=== PATIENT | female | born 1985 | race Caucasian/White ===

== ENCOUNTER 2017-02-28 16:31 | Emergency (ER) | payer MEDICARE ==
[~2017-02-28 16:31] MED LIST: BENTYL 20MG TAB20 MG PO; HYDROCHLOROTH12.5 M1 PO; LEVOTHYROXINE50 MCG PO; LISINOPRIL10 MG PO; METFORMIN HCL500 MG PO; OMEPRAZOLE20 MG PO; PHENERGAN 25 MG25 M1 PO; ZOCOR20 MG PO; ZYRTEC10 MG PO
[2017-02-28 17:21] LABS: HEMOGLOBIN 14.9 gm/dl (12.3-15.3); RED BLOOD COUNT 5.03 M/UL (4.00-5.10); WHITE BLOOD COUNT 14.1 K/UL (4.5-11.0)
[2017-02-28 17:38] LABS: BUN/CREATININE RATIO 14 (0-10)
== END 2017-03-01 01:17 | disposition home or self-care (01) ==
LOC: ER1 16:31
PROVIDERS: Family Medicine
DX: N83.201 Unspecified ovarian cyst, right side (principal); K57.90 Diverticulosis of intestine, part unspecified, without perforation or abscess without bleeding; E11.9 Type 2 diabetes mellitus without complications; I10 Essential (primary) hypertension; E03.9 Hypothyroidism, unspecified; E78.5 Hyperlipidemia, unspecified; Z90.49 Acquired absence of other specified parts of digestive tract; Z88.0 Allergy status to penicillin; Z79.899 Other long term (current) drug therapy; Z79.84 Long term (current) use of oral hypoglycemic drugs
CPT/HCPCS: 36415; 76830; 80053; 81001; 82150; 83690; 84703; 85025; 87086; 87210; 96374; 96375; 99284; J0696; J2270; J2405; J7030; J7050; Q9962

== ENCOUNTER → 2020-09-23 | Outpatient (CLI) | payer OTHER ==
[~2020-09-23] MED LIST changes: +CLEOCIN HCL300 MG PO
== END ==
LOC: KOH-I 09-22 15:30
DX: R59.0 Localized enlarged lymph nodes (principal); R93.89 Abnormal findings on diagnostic imaging of other specified body structures
CPT/HCPCS: 76536

== ENCOUNTER → 2021-09-20 | Day surgery (SDC) | payer OTHER | END | disposition home or self-care (01) | LOC: OR 06:40 | DX: K29.50 Unspecified chronic gastritis without bleeding (principal); E73.9 Lactose intolerance, unspecified; K57.30 Diverticulosis of large intestine without perforation or abscess without bleeding; E66.9 Obesity, unspecified; I10 Essential (primary) hypertension; R73.03 Prediabetes; Z88.0 Allergy status to penicillin; Z98.51 Tubal ligation status; Z20.822 Contact with and (suspected) exposure to COVID-19 | CPT/HCPCS: 74018; J1100; J2001; J2704; J7040 ==